=== PATIENT | female | born 2000 | race American Indian/Alaskan Native ===

== ENCOUNTER 2022-03-16 06:02 | Emergency (ER) | payer OTHER ==
[2022-03-16] MEDS: IBUPROFEN 600 MG TAB PO ONE ×2 (06:12→07:55)
[2022-03-16] MEDS ORDERED: dexAMETHasone 4 MG/ML VIAL PO ONE (07:48)
--- NOTE | 2022-03-16 07:53 | Emergency Department Report ---
ED Fever HPI - General Chief Complaint: Fever Stated Complaint: BODYACHES, SORE THROAT Time Seen by Provider: 03/16/22 07:29 - History of Present Illness Initial Comments: 22-year-old black female with a past medical history of vertigo presents to the emergency department for evaluation of 1 day history of fever, sore throat, body aches. She states that symptoms came on out of nowhere and has been getting progressively worse since then. She also complains of headache, abdominal pain but denies cough and congestion. She states that her body aches are 5 on a 10 point scale. 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 denies: chest pain, confusion, cough, diaphoresis, nausea/vomiting, rash, stiff neck, syncope, weakness ED Review of Systems ROS: Stated complaint: BODYACHES, SORE THROAT Other details as noted in HPI Comment: All other systems reviewed and negative Constitutional: chills, fever, malaise, weakness Eyes: denies: vision change ENT: throat pain. denies: congestion Respiratory: shortness of breath. denies: cough, SOB with exertion, SOB at rest, stridor, wheezing Cardiovascular: denies: chest pain, palpitations Gastrointestinal: abdominal pain. denies: nausea, vomiting, diarrhea, hematemesis, melena, hematochezia Genitourinary: denies: urgency, dysuria, frequency, hematuria, discharge Musculoskeletal: denies: back pain Skin: denies: rash, lesions Neurological: denies: headache, weakness Psychiatric: denies: anxiety, depression ED Past Medical Hx - Medications Home Medications: Home Medications Medication Instructions Recorded Confirmed Last Taken Type Prednisone [predniSONE 10 mg 10 mg PO .TAPER #1 pack 03/16/22 Unknown Rx (6-Day Pack, 21 Tabs)] ED Physical Exam - General Limitations: No Limitations General appearance: alert, in no apparent distress - Head Head exam: Present: atraumatic, normocephalic - Eye Eye exam: Present: normal appearance. Absent: conjunctival injection, periorbital swelling, periorbital tenderness - ENT ENT exam: Absent: normal exam (Bilateral nasal mucosal edema), normal orophraynx (Erythema noted to posterior oropharynx.) - Neck Neck exam: Present: normal inspection. Absent: tenderness, lymphadenopathy - Respiratory Respiratory exam: Present: normal lung sounds bilaterally. Absent: respiratory distress, wheezes, rales, rhonchi, stridor, chest wall tenderness - Cardiovascular Cardiovascular Exam: Present: tachycardia, normal heart sounds - GI/Abdominal GI/Abdominal exam: Present: soft, normal bowel sounds. Absent: distended, tenderness, guarding, rebound, rigid - Extremities Exam Extremities exam: Present: normal inspection, normal capillary refill. Absent: pedal edema, joint swelling, calf tenderness - Back Exam Back exam: Present: normal inspection. Absent: CVA tenderness (R), CVA tenderness (L), vertebral tenderness - Neurological Exam Neurological exam: Present: alert, oriented X3, CN II-XII intact, normal gait - Psychiatric Psychiatric exam: Present: normal affect, normal mood - Skin Skin exam: Present: warm, dry, intact, normal color ED Course Vital Signs 03/16/22 03/16/22 06:05 07:50 Temperature 102.9 F H 99.2 F Pulse Rate 107 H Respiratory 18 Rate Blood Pressure 106/56 O2 Sat by Pulse 99 Oximetry ED Medical Decision Making - Radiology Data Radiology results: report reviewed, image reviewed Chest x-ray: FINDINGS: SUPPORT DEVICES: None. HEART / MEDIASTINUM: No significant abnormality. LUNGS / PLEURA: No significant pulmonary or pleural abnormality. No pneumothorax. ADDITIONAL FINDINGS: No significant additional findings. IMPRESSION: 1. No acute findings. - Medical Decision Making 22-year-old black female with a past medical history of vertigo presents to the emergency department for evaluation of 1 day history of fever, sore throat, body aches. She states that symptoms came on out of nowhere and has been getting progressively worse since then. She also complains of headache, abdominal pain but denies cough and congestion. She states that her body aches are 5 on a 10 point scale. Physical exam unremarkable, and chest x-ray without any acute abnormalities noted. Patient will be discharged home with steroid Dosepak and advised use Tylenol and ibuprofen as needed for fever and consider COVID-19 testing. She is advised to follow-up with her primary care provider in the emergency department for worsening or concerning symptoms. She verbalizes understanding of and agreement with plan of care. Critical care attestation.: If time is entered above; I have spent that time in minutes in the direct care of this critically ill patient, excluding procedure time. ED Disposition Clinical Impression: Viral syndrome Disposition: 01 HOME / SELF CARE / HOMELESS Is pt being admited?: No Does the pt Need Aspirin: No Condition: Stable Instructions: Viral Illness, Adult Additional Instructions: Take medications as prescribed. Consider COVID-19 testing. Follow-up with your primary care provider or in the emergency department if no improvement or worsening symptoms. Prescriptions: Prednisone [predniSONE 10 mg (6-Day Pack, 21 Tabs)] 10 mg PO .TAPER #1 pack Referrals: CHET NELSON MD [Staff Physician] - 3-5 Days Forms: Work/School Release Form(ED) Time of Disposition: 08:34
--- NOTE | 2022-03-16 08:10 | XRay Report ---
CHEST 2 VIEWS INDICATION / CLINICAL INFORMATION: sob, fever. COMPARISON: None available. FINDINGS: SUPPORT DEVICES: None. HEART / MEDIASTINUM: No significant abnormality. LUNGS / PLEURA: No significant pulmonary or pleural abnormality. No pneumothorax. ADDITIONAL FINDINGS: No significant additional findings. IMPRESSION: 1. No acute findings. Signer Name: Dieudonne Garcia MD Signed: 03/16/2022 8:06 AM Workstation Name: [id number]
[2022-03-16 08:55] VITALS: BP 122/85
== END 2022-03-16 09:01 | disposition home or self-care (01) ==
LOC: ED 06:02
DX: B34.9 Viral infection, unspecified (principal)
CPT/HCPCS: 71046; 99283; J1100